=== PATIENT | female | born 1980 | race Caucasian/White ===

== ENCOUNTER 2022-06-14 17:40 | Emergency (ER) | payer OTHER ==
[~2022-06-14] VITALS: Ht 149.9 cm; Wt 77.1 kg
[2022-06-14 17:45] VITALS: BP 149/97
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
[2022-06-14] MEDS ORDERED: IBUPROFEN 600 MG TAB PO ONE (18:25)
--- NOTE | 2022-06-14 18:37 | NUR ---
PT TAKEN TO XRAY VIA WC
--- NOTE | 2022-06-14 19:01 | NUR ---
PT TRANSFERRED TO CHAIR B
[2022-06-14] MEDS ORDERED: IBUP-2213 PO (19:47)
[2022-06-14] MEDS ORDERED: ACET-10509 PO (19:47)
[2022-06-14 19:55] VITALS: BP 149/97
--- NOTE | 2022-06-14 19:55 | NUR ---
Patient discharged with v/s stable. Written and verbal after care instructions given and explained. Patient alert, oriented and verbalized understanding of instructions. Ambulatory with steady gait. All questions addressed prior to discharge. ID band removed. Patient advised to follow up with PMD. Rx of TYLENOL AND MOTRIN given. Patient educated on indication of medication including possible reaction and side effects. Opportunity to ask questions provided and answered.
== END 2022-06-14 19:55 | disposition home or self-care (01) ==
LOC: MED 17:40
DX: R07.89 Other chest pain (principal)
CPT/HCPCS: 71046; 81025; 99283; Q0092